=== PATIENT | female | born 2000 | race Caucasian/White ===

== ENCOUNTER 2024-05-20 08:38 | Emergency (ER) | payer OTHER, SELFPAY ==
[2024-05-20 09:46] VITALS: BP 113/69; PULSE 53; RESP 16; TEMP 36.9; O2SAT 98; BMI 18.9
--- NOTE | 2024-05-20 10:05 | XR_ITS ---
Examination: Abdomen 2 views Technique one AP upright AP supine abdomen 2 views Exam date and time: May 20, 2024 1033 hrs. Indications: Bilateral upper abdominal pain beginning 4:00 PM yesterday Findings: Nonobstructive bowel gas pattern Moderate stool throughout the colon No free air No abnormal calcific densities Lung bases are clear Impression: Nonobstructive bowel gas pattern
--- NOTE | 2024-05-20 10:06 | EDNOTE_ITS ---
ED Abdominal Pain RME/HPI General Chief Complaint: Abdominal Pain Stated complaint: ABD PAIN W/ NAUSEA Time seen by provider: 05/20/24 10:05 Arrival date/time: 05/20/24 08:38 RME / HPI RME / HPI narrative: 24-year-old patient presents emergency department with complaint of bilateral upper abdominal pain since 4 PM yesterday. Patient denies pain with defecation. Patient denies pain worsening with laying down. Patient denies vomiting or diarrhea. Patient denies sick contact or recent travel. Patient denies fever. Patient denies any alleviating or aggravating factors Related Data Previous Rx's ?Medication ?Instructions ?Recorded docusate sodium 100 mg capsule 100 mg PO TID 10 days #30 caps 05/20/24 Allergies Allergy/AdvReac Type Severity Reaction Status Date / Time No Known Allergies Allergy Verified 05/20/24 08:39 Review of Systems Review of Systems Systems Reviewed: All systems reviewed, normal except as documented Constitutional Constitutional: Reports system reviewed and no additional complaints, except as documented Cardiovascular Cardiovascular: Reports system reviewed and no additional complaints, except as documented Respiratory Respiratory: Reports system reviewed and no additional complaints, except as documented Gastrointestinal Gastrointestinal: Reports system reviewed and no additional complaints, except as documented Genitourinary Genitourinary: Reports system reviewed and no additional complaints, except as documented Musculoskeletal Musculoskeletal: Reports system reviewed and no additional complaints, except as documented ED Exam General General appearance: Present alert and in no apparent distress Head Head exam: Present atraumatic and normocephalic Eye Eye exam: Present normal appearance and PERRL Neck Neck exam: Present normal inspection and full ROM Respiratory Respiratory exam: Present normal lung sounds bilaterally Cardiovascular Cardiovascular exam: Present regular rate and normal rhythm Abdominal Exam Abdominal exam: Present soft and distention Abdominal tenderness: Present diffuse Extremities Exam Extremities exam: Present normal inspection and full ROM Neurological Exam Neurological exam: Present alert and oriented X3 Psychiatric Psychiatric exam: Present normal affect and normal mood Course Quality Measures none Orders Category Date Time Status XR abdomen flat and uprght Stat Exams 05/20/24 10:05 Completed Urinalysis, C/S if Indicated Stat Lab 05/20/24 10:05 Ordered Vital Signs Vital signs: Vital Signs Temperature 98.4 F 05/20/24 09:46 Pulse Rate 53 L 05/20/24 09:46 Respiratory Rate 16 05/20/24 09:46 Blood Pressure 113/69 05/20/24 09:46 Pulse Oximetry (%) 98 05/20/24 09:46 Oxygen Delivery Method Room Air 05/20/24 09:46 Abdominal Pain MDM MDM Narrative MDM Narrative:: 24-year-old patient presents emergency department with complaint of abdominal pain. Abdominal x-ray indicates moderate fecal material in colon consistent with constipation patient stable to DC Patient data External records reviewed:: None Clinical information provided by:: patient Social determinants that could affect healthcare access:: none Patient has the following chronic illnesses:: na How is presenting disease/condition affected by chronic disease/condition?: no chronic disease Evaluation data The following diagnostics were reviewed and interpreted by me:: radiology exam(s) (moderate fecal material in colon) Lab and/or radiology exams considered but not ordered:: radiology ordered Interpretation Summary: constipation Medications / Prescriptions Medications or Prescriptions considered but not ordered:: meds considered and ordered Medication administrations:: na Consultations Consultation(s) initiated? (list below): No Diagnosis Differential diagnosis abdominal pain: abdominal pain, acute appendicitis, calculus of kidney and constipation Most likely diagnosis given after review of the tests above:: constipation Admission Indicated Admission indicated?: not indicated Admission Request Was there a request for admission?: No Disposition Plan Disposition Plan: Discharge Discharge Attestation Discharge Attestation: The patient and all family members were given an opportunity to ask questions and understood the discharge instructions. Discharge instructions specifically effects, indications for sooner follow up or return to the emergency department, and the expected course of current diagnosis. Patient condition: Stable Discharge Plan Plan Patient Disposition: HOME (Self Care) Prescriptions/Referrals Prescriptions/Med Rec: New docusate sodium 100 mg capsule 100 mg PO TID 10 Days Qty: 30 0RF Referrals: No Primary/Family,Physician [Primary Care Provider] - In 1 week Problem List Clinical Impression: Constipation Patient/Caregiver Discharge Instructions Education Materials: Eating a High-Fiber Diet, ED Constipation (Adult) Print Language: Syriac Stand Alone Forms: Bessie Award Info., Patient Portal Info Letter
[2024-05-20 11:55] LABS: Collection Type, Urine Clean Catch
[2024-05-20] MEDS: MAGNESIUM CITRATE 300 ML BTL PO (12:34)
[2024-05-20 12:38] LABS: Bacteria,Urine 1+; Bilirubin,Urine Negative (Negative); Blood,Urine Negative (Negative); Clarity,Urine Clear (Clear/Hazy); Color,Urine Lt-Yellow (Lt Yel-Yel); Glucose, Urine Negative (Negative); Ketones,Urine Trace (Negative); Leukocyte Esterase,Urine Negative (Negative); Nitrite,Urine Negative (Negative); Protein,Urine Negative (Neg - Trace); RBC,Urine 1 /hpf (0-3); Specific Gravity,Urine 1.024 (1.001-1.035); Squamous Epithelial Cell,Urine 4 /hpf (0-5); Urobilinogen,Urine Negative mg/dL (0.0-1.0); WBC,Urine 1 /hpf (0-5)
[2024-05-20 12:44] LABS: Culture Indicated,Urine Yes
== END 2024-05-20 12:35 | disposition home or self-care (01) ==
PROVIDERS: Physician Assistant; Emergency Provider Emergency Medicine
DX: K59.00 Constipation, unspecified (principal)
CPT/HCPCS: 74019; 81001; 87086; 99283; A9270